=== PATIENT | male | born 1985 | race Caucasian/White ===

== ENCOUNTER 2017-07-24 10:52 | Emergency (ER) | payer SELFPAY ==
[~2017-07-24] VITALS: Ht 185.4 cm; Wt 99.8 kg
[~2017-07-24 10:52] MED LIST: CIPROFLOXACIN500 MG PO; LOMOTIL 0.025 M1 TA1 PO; MOTRIN800 MG PO; PEN-VEE K500 MG PO; PENICILLIN VK500 MG PO; TRAMADOL HCL50 MG PO; VICODIN ES 7501 TAB PO; ZOFRAN ODT4 MG SL
== END 2017-07-24 11:41 | disposition home or self-care (01) ==
LOC: ED 10:52
DX: S05.91XA Unspecified injury of right eye and orbit, initial encounter (principal)

== ENCOUNTER 2018-08-27 15:52 | Emergency (ER) | payer SELFPAY ==
[~2018-08-27] VITALS: Ht 185.4 cm; Wt 95.3 kg
[~2018-08-27 15:52] MED LIST changes: +KEFLEX500 M1 PO
[2018-08-27] MEDS ORDERED: PENICILLIN VK500 MG PO (16:15)
[2018-08-27] MEDS ORDERED: NAPROSYN500 MG PO (16:15)
== END 2018-08-27 16:28 | disposition home or self-care (01) ==
LOC: ED 15:52
DX: K04.7 Periapical abscess without sinus (principal); K08.409 Partial loss of teeth, unspecified cause, unspecified class; F17.200 Nicotine dependence, unspecified, uncomplicated

== ENCOUNTER → 2021-10-11 | Outpatient (CLI) | payer OTHER ==
[~2021-10-11] MED LIST changes: +NAPROSYN500 MG PO
== END | disposition home or self-care (01) ==
LOC: COVID19 16:43
PROVIDERS: ATTEND Internal Medicine
DX: Z20.822 Contact with and (suspected) exposure to COVID-19 (principal)